=== PATIENT | female | born 1955 | race Caucasian/White ===

== ENCOUNTER 2018-10-08 18:48 | Emergency (ER) | payer BC, OTHER ==
[~2018-10-08] VITALS: Ht 157.5 cm; Wt 65.8 kg
[2018-10-08 18:52] VITALS: BP_SYST 158
--- NOTE | 2018-10-08 18:56 | NUR ---
Placed in room 01 . Placed on monitoring coordinator, blood pressure machine and pulse oximeter. To gown for exam. Side rails up.
--- NOTE | 2018-10-08 18:57 | NUR ---
EKG done at bedside
--- NOTE | 2018-10-08 18:59 | NUR ---
Pt AAOx4 presents to ED c/o 07/07 L sided chest pain radiating to L arm x 1 hour. Denies N/V/D/blurred vision. Skin pink dry and warm, breathing even and unlabored. No other injuries/complaints per pt/noted. Will continue to monitor.
--- NOTE | 2018-10-08 19:01 | NUR ---
Pt states she took 1 aspirin prior to arrival with no relief
[2018-10-08] MEDS ORDERED: NACL 0.9% 1,000 ML IV ONE ×3 (19:09→22:15)
[2018-10-08] MEDS ORDERED: KETOROLAC TROMETHAMINE 30 MG VIAL IVP ONE (19:15)
[2018-10-08] MEDS ORDERED: ASPIRIN 81 MG TAB.CHEW PO ONE (19:15)
[2018-10-08] MEDS ORDERED: LORazepam 2 MG/ML VIAL (FOR ER USE) IVP ONE (19:15)
--- NOTE | 2018-10-08 19:15 | NUR ---
# LAC gauge angiocath placed to LAC. Use of asceptic technique. Opsite placed over site. Blood return noted. Blood for lab drawn from site. Flushed with 10 cc of normal saline. No evidence of infiltration noted. Patient tolerated well. Addendum: 10/08/18 at 2147 by SDEDAJ 20 GA PIV
[2018-10-08 19:47] LABS: ANION GAP 7 (5-15); BASOPHILS % (AUTO) 0.7 % (0.0-2.0); CALCIUM 9.4 mg/dL (8.4-11.0); CHLORIDE 104 mmol/L (98-107); CREATININE 0.78 mg/dL (0.55-1.30); EOSINOPHILS # (AUTO) 0.1 K/uL (0.0-0.4); EOSINOPHILS % (AUTO) 1.1 % (0.0-4.0); GLUCOSE 93 mg/dL (70-99); HEMOGLOBIN 13.6 g/dL (12.0-16.0); LYMPHOCYTES % (AUTO) 28.3 % (20.5-51.5); MEAN CORPUSCULAR HEMOGLOBIN 30 pg (27-31); MEAN CORPUSCULAR HGB CONC 33 % (32-36); MEAN CORPUSCULAR VOLUME 92 fL (79.0-98.0); MONOCYTES # (AUTO) 0.4 K/uL (0.0-1.0); MONOCYTES % (AUTO) 6.3 % (1.7-9.3); NEUTROPHILS # (AUTO) 4.5 K/uL (1.8-7.7); NEUTROPHILS % (AUTO) 63.6 % (40.0-70.0); PLATELET COUNT (AUTO) 311 K/uL (130-430); POTASSIUM 3.4 mmol/L (3.5-5.1); RED BLOOD CELL COUNT(AUTO) 4.48 MIL/uL (4.2-6.2); RED CELL DISTRIBUTION WIDTH 12.6 % (9.0-15.0); SODIUM SERUM 140 mmol/L (136-145); UREA NITROGEN, BLOOD 12 mg/dL (8-21)
[2018-10-08 19:48] LABS: GFR AFRICAN AMERICAN 96 mL/min (>90)
[2018-10-08 19:56] LABS: ALANINE AMINOTRANSFERASE 27 U/L (12-78); ALBUMIN 3.5 g/dL (3.4-4.8); ASPARTATE AMINOTRANSFERASE 15 U/L (10-37); TOTAL BILIRUBIN 0.4 mg/dL (0.0-1.0)
--- NOTE | 2018-10-08 20:00 | NUR ---
Pt resting quietly, VSS, family member at bedside and no needs verbalized at this time.
--- NOTE | 2018-10-08 21:57 | NUR ---
Dr. Roa on the phone with Milad JAIMES.
--- NOTE | 2018-10-08 22:06 | NUR ---
[facility] visit authorization # [id number], given by Dr. Russ.
--- NOTE | 2018-10-09 | NUR ---
Roxie casillas in ED - 10/09/18 at 0023 by SDEDAJ Called Lab to follow up on repeat Troponin. BOB Gillis states that blood has not been drawn.
--- NOTE | 2018-10-09 | NUR ---
Called Lab to follow up on repeat Troponin. BOB Moraes states that blood has not been drawn.
--- NOTE | 2018-10-09 00:02 | NUR ---
Blood drawn from [facility] for repeat Troponin. Specimen hand delivered to BOB Moraes and reinformed that Troponin results are late. Instructed to run stat.
--- NOTE | 2018-10-09 00:02 | NUR ---
Note sonja in EDM - 10/09/18 at 0023 by RUFINA Blood drawn from [facility] LAC for repeat Troponin. Specimen hand delivered to BOB Gillis and bakari that Troponin results are late. Instructed to run stat.
--- NOTE | 2018-10-09 01:04 | NUR ---
Pt denies c/o pain or discomfort, no needs verbalized. Pt.'s at bedside.
--- NOTE | 2018-10-09 02:00 | NUR ---
Resting calmly, VSS, at bedside. No needs verbalized at this time.
[2018-10-09 03:10] VITALS: BP_SYST 101
--- NOTE | 2018-10-09 03:10 | NUR ---
Patient to be transferred to [facility]. Is being transferred due to higher level of care. Receiving facility has accepting physician and available space. ER physician has signed transfer form. Patient or responsible green party has agreed to transfer and signed form. Patient belongings inventoried and will be sent with patient. Copy of nursing notes, lab reports, EKG, Physicians Orders and X-rays to be sent with patient. Report called to MALACHI Wiggins at receiving facility. Receiving physician is Dr. Healy. Pt leaves in care of ALS, stable condition, VSS. Pt c/o 03/07 left shoulder pain, but states that she doesn't want anything for pain.
== END 2018-10-09 03:10 | disposition short-term general hospital (02) ==
LOC: SED 18:48
DX: R07.89 Other chest pain (principal)
CPT/HCPCS: 36415; 71045; 80053; 85025; 84484; 93005; 96374; 96375; 99285; J1885; J2060; J7030